=== PATIENT | male | born 1955 | race Caucasian/White ===

== ENCOUNTER → 2017-07-13 | Day surgery (SDC) | payer BC ==
[~2017-07-13] MED LIST: ALEV220T14 PO; BUPIVACAINE HCL PF 0.25% 30 ML VIAL ONE; KETOROLAC TROMETHAMINE 30 MG/ML (IVP) VIAL IV PUSH ONE; LACTATED RINGER'S 1000 ML INJ 1,000 ML ONE; MELA1CAP PO; MIDAZOLAM HCL 2 MG/2 ML VIAL ONE; NEOMYCIN/POLYMYXIN/BACITRACIN OINT 15 GM TUBE ONE; ONDANSETRON HCL 4 MG/2 ML VIAL IV PUSH ONE; PROPOFOL 200 MG/20 ML AMP IV ONE; TAB-TAB PO; ZYRT10TA12 PO; ceFAZolin 2 GM PREMIX 50 ML ONE
--- NOTE | 2017-07-13 10:37 | TN ---
cc: Yevgeniy Rehman MD DATE OF SURGERY: 07/13/2017 PREOPERATIVE DIAGNOSIS: Symptomatic enlarging umbilical hernia. POSTOPERATIVE DIAGNOSIS: Symptomatic enlarging umbilical hernia. PROCEDURE PERFORMED: Umbilical hernia repair with mesh. SURGEON: Yevgeniy Rehman MD. PHARMACY TECHNICIAN ASSISTANT: HAILEY Carpenter. ANESTHESIA: General LMA. COMPLICATIONS: None. INDICATIONS FOR PROCEDURE: Mr. Ivy is a pleasant 61-year-old gentleman who has a symptomatic enlarging umbilical hernia. He was seen and evaluated in the office and offered elective repair with mesh. Risks and benefits of repair were discussed with him and he was agreeable. PROCEDURE DETAILS: The patient was identified, brought to the operating room, placed supine on the operating table. After adequate general anesthesia was achieved with LMA, the anterior abdomen was prepped and draped in standard surgical fashion. 0.25% Marcaine was injected into the skin and subcutaneous tissue in the infraumbilical ridge. The infraumbilical ridge was then incised. Dissection was carried down into the subcutaneous tissue identifying the umbilical stalk and hernia sac. The umbilical stalk and hernia sac were dissected circumferentially. The umbilical stalk was then dissected off of the hernia sac. The hernia sac was then reduced back into the abdominal cavity without any difficulty. It appeared to contain preperitoneal fat or omentum. Next, attention was directed to the identification of the fascial defect. The fascial defect was dissected out circumferentially about a 1 cm in all directions. Attention was now directed to repair. Repair was accomplished using a 2 layer technique. First, the fascia was closed primarily using a 0 Prolene suture, interrupted x 4. Once this was accomplished, an onlay mesh was then placed with generous overlap over the primary fascial repair. The mesh was then secured in the 4 corners using a 2-0 Prolene suture to the anterior abdominal wall fascia. The mesh was also secured on the superior and inferior border in the midpoint. With this, the defect was completely covered in 2 layers. The wound was then irrigated out with normal saline solution. Additional local anesthetic was injected into the fascia. The umbilical stalk was then tacked down to the abdominal wall using a 3-0 Vicryl. Subcutaneous tissue was closed with 3-0 Vicryl and skin was closed with 4-0 Vicryl. The patient tolerated the procedure well, was awaken and brought to the recovery in stable condition. Please note, the HAILEY assistant center director was medically necessary due to her advanced surgical skills and knowledge of my surgical technique. MD BEN Cruz/JAVIER , 10:16 AM , 10:36 AM
== END | disposition home or self-care (01) ==
LOC: ESDC 07:06
PROVIDERS: ATTEND Surgery Trauma Surgery
DX: K42.9 Umbilical hernia without obstruction or gangrene (principal)
CPT/HCPCS: 00750; 49585; C1781; J0690; J1885; J2250; J2405; J3010; J7120